=== PATIENT | female | born 1950 | race Caucasian/White ===

== ENCOUNTER 2019-07-16 15:00 | Inpatient (IN) ==
--- NOTE | 2019-07-16 15:55 | PROVIDER DOCUMENTATION ---
HPI-General Adult - General Stated Complaint: MY HEART RATE RUNNING 125 Time Seen by Provider: 07/16/19 15:25 Source: patient Allergies/Adverse Reactions: Patient Allergies Allergy/AdvReac Type Severity Reaction Status Date / Time morphine AdvReac Severe HYPOTENSION, Verified 03/01/15 14:36 SEVERE Home Medications: Home Medication List Medication Instructions Recorded Confirmed Last Taken Type Cetirizine HCl/Pseudoephedrine 1 each PO Q12H PRN PRN 09/04/13 03/09/15 03/08/15 08:00 History [Wal-Zyr D Tablet] Eszopiclone [Lunesta] 3 mg PO HS PRN PRN 09/04/13 03/09/15 03/07/15 History Levothyroxine [Synthroid] 100 microgm PO DAILY 09/04/13 03/09/15 03/08/15 08:00 History Potassium Chloride 2 tab PO DAILY 09/04/13 03/09/15 03/08/15 08:00 History Sertraline HCl 100 mg PO QHS 09/04/13 03/09/15 03/08/15 20:00 History - History of Present Illness -Gen Adult Nature of Presenting Problems: Patient with stage 4 cancer with active chemo comes in with having palpitations and some dizziness. She denies any pain or shortness of breath. She states she was recently at and was tachycardic and her O2 level was low. She declined admission at that time. Today she went in to have her EPO shot and some fluids and kept being tachycardic and dizzy so she came in to the ER. She did have an episode where she had syncope and fell and hit her head but that was before going to [facility] for evaluation and her CT was negative. Review of Systems - Adult - REVIEW OF SYSTEMS - ADULT Constitutional: reports: see HPI, álvaro. denies: chills, fever, night sweats, weight gain, weight loss Eyes: reports: no symptoms reported. denies: discharge, dry eyes, decreased vision, blurred vision, double vision, eye pain Ears, Nose, Mouth & Throat: reports: no symptoms reported. denies: ear discharge, hearing loss, tinnitus, epistaxis, loose teeth, mouth/dental pain, mouth swelling, hoarseness, throat pain, throat swelling Cardiovascular: reports: see HPI, irregular heart rate, palpitations. denies: chest pain, edema, heart murmur, orthopnea, poor circulation, PND, syncope Respiratory: reports: no symptoms reported. denies: chronic cough, cough, dyspnea on exertion, excessive sputum production, hemoptysis, pleurisy, shortness of breath, wheezing Gastrointestinal: reports: no symptoms reported. denies: abdominal pain, hematemesis, diarrhea, difficulty swallowing, frequent heartburn, poor appetite, rectal bleeding, vomiting Genitourinary: reports: no symptoms reported. denies: dysuria, discharge, frequency, flank pain, hesitency, incontinence, urinary retention, urgency Musculoskeletal: reports: no symptoms reported. denies: bone pain, back pain, frequent leg cramps, joint pain, joint swelling, muscle weakness Integumentary: reports: no symptoms reported. denies: hives, hair loss, itching, mole changes, rash, skin sores/ulcer, skin thickening Neurological: reports: no symptoms reported. denies: dizziness/vertigo, headache/migraines, loss of balance, numbness, seizure, slurred speech, syncope Psychiatric: reports: no symptoms reported. denies: anxiety, alcohol/drug dependence, depression, emotional problems, insomnia, panic attacks, suicidal thoughts Endocrine: reports: no symptoms reported. denies: excessive sweating, cold intolerance, heat intolerance, increased hunger, increased thirst, polyuria Hematologic/Lymphatic: reports: no symptoms reported. denies: blood clots, easy bruising, low blood count, prolonged bleeding, swollen lymph nodes, transfusions Allergic/Immunologic: reports: no symptoms reported. denies: allergic reactions, asthma, eczema, frequent infections, hay fever, hives, positive PPD, urticaria All Other Systems: Reviewed and Negative Past History - Adult - PAST MEDICAL HISTORY-ADULT Review of Records: reports: Old Records Reviewed, Nursing Assessment Review, Me dications Reviewed, Social history reviewed & non-contributory. Major Childhood Illnesses: reports: denies history Cardiovascular: reports: denies history Respiratory: reports: denies history Gastrointestinal: reports: denies history Obstetrical/Gynecological: reports: denies history Genitourinary: reports: denies history Musculoskeletal: reports: denies history Neurological: reports: denies history Endocrine/Immune: reports: denies history, cancer Other Conditions: reports: denies history - PRIOR SURGERIES/PROCEDURES Surgical/Procedure History: reports: reviewed, not pertinent - IMMUNIZATION STATUS Childhood Immunizations: See Nurse Assessment Flu Vaccine: See Nurse Assessment - FAMILY HISTORY Family History: reviewed, not pertinent - SOCIAL HISTORY Smoking: quit greater than 1 year Substance Use: none/never Living Situation: family Physical Exam-General - PHYSICAL EXAM-ADULT Initial Vital Signs Reviewed: Yes - CONSTITUTIONAL General Appearance: appears well, alert, no apparent distress, thin - EYES Eyes: PERRL/EOMI, pink conjunctivae - HEAD, EARS, NOSE, MOUTH & THROAT HENMT: normocephalic/atraumatic, other. negative: moist mucous membranes (dry mucous membranes) - NECK Neck: non-tender, full range of motion, supple - RESPIRATORY Respiratory: chest non-tender, lungs clear, normal breath sounds, no pleuratic chest pain, no respiratory distress, no accessory muscle use - CARDIOVASCULAR Cardiovascular: normal peripheral pulses, no edema, no gallop, no JVD, no murmur , tachycardia - GASTROINTESTINAL (ABDOMEN) Abdominal Exam: normal bowel sounds, non tender, soft - LYMPHATIC Lymphatic: no adenopathy - MUSCULOSKELETAL Back Exam: normal inspection, no CVA tenderness Extremity: normal range of motion, non-tender, normal gait - SKIN Integumentary: normal color, normal turgor, warm/dry - 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, grossly normal - PSYCHIATRIC Psych/Mental Status: normal mood/affect, normal thought content, normal thought process, oriented x 3 Progress - PLAN OF CARE/RESULTS Progress/Plan/Lab Results: Orders Category Date Time Status cxr [CHEST-PORTABLE] [RAD] Stat Exams 07/16/19 15:43 Ordered CBC WITH DIFF [HEME] Stat Lab 07/16/19 15:42 Uncollected CMP [COMPREHENSIVE METABOLIC PANEL] [CHEM] Stat Lab 07/16/19 15:42 Uncollected PROTIME WITH INR [COAG] Stat Lab 07/16/19 15:43 Uncollected PTT [COAG] Stat Lab 07/16/19 15:46 Uncollected EKG [EKG] Stat Ther 07/16/19 15:42 Ordered Result Diagrams: 07/16/19 16:50 07/16/19 16:50 - XRAY 1 XRAY Study: Chest Impression: Normal, See EMR Report (OMMENT: The inspiration is less optimal than on 12/17/2017. There is cardiomegaly and increased pulmonary vascularity. Considering degree of inspiration there has been no significant change since the previous study.) - CONSULTS/PCP/HOSPITALIST Notification #1 *Consult/PCP/Hospitalist*: Dr leslie Time Discussed: 18:08 Consult Disposition: Admit Departure - Departure Date of Disposition Decision: 07/16/19 Time of Disposition Decision: 18:05 DIAGNOSIS: Atrial fibrillation with RVR Disposition: ADMITTED INPATIENT 09 Certified Medical Emergency: Emergent Condition: Good Referrals and Follow-Ups: Moose Oh MD [Primary Care Provider] - - Critical Care Note This patient required my direct & personal management of CC.: No Attestation - Physician/ GLADYS Attestation Patient care was provided by Advanced Practice Provider:: Yes Advanced Practice Provider:: Armand Ambriz Advanced Practice Provider documentation review:: The Mid-level provider documentation, treatment plan and medical decision making was reviewed by the physician who agrees with all treatment and medical decision making by the MLP. The physician spent face to face time with patient:: No Advanced Practice Provider documentation review:: Supervising physician onsite and consulted in the evaluation and care of this patient. The physician did not have a face to face encounter with the patient.
[2019-07-16] MEDS ORDERED: NS 1,000 ML IV ONE (15:56)
--- NOTE | 2019-07-16 16:09 | EKG Report ---
Test Performed on : 07/16/2019 3:15:35 PM Test Reason : tachy Blood Pressure : / mmHG Vent. Rate : 095 BPM Atrial Rate : 095 BPM P-R Int : 180 ms QRS Dur : 100 ms QT Int : 392 ms P-R-T Axes : 057 034 020 degrees QTc Int : 492 ms Normal sinus rhythm. Cannot rule out Inferior infarct , age undetermined Abnormal ECG When compared with ECG of 29-NOV-2008 13:09, premature atrial complexes. are no longer present Minimal criteria for Inferior infarct are now present Nonspecific T wave abnormality has replaced inverted T waves in Inferior leads T wave inversion no longer evident in Anterolateral leads Unconfirmed Result
--- NOTE | 2019-07-16 16:15 | Diag Imaging Result Doc PS360 ---
EXAM: CHEST-PORTABLE 07/16/2019 HISTORY: ca with fatigue TECHNIQUE: AP portable upright at 1551 COMMENT: The inspiration is less optimal than on 12/17/2017. There is cardiomegaly and increased pulmonary vascularity. Considering degree of inspiration there has been no significant change since the previous study. IMPRESSION: Stable chest. Electronically signed by Jared Pinon 07/16/2019 4:13 PM
[2019-07-16 17:12] LABS: HEMATOCRIT 34.8 % (37.0-47.0); HEMOGLOBIN 10.6 g/dL (12.0-16.0); LYMPH# 0.79 X1000 (1.2-3.4); LYMPH% 4.6 % (20.5-51.1); MCH 29.5 PG (27-31); MCHC 30.5 g/dL (33-37); MCV 96.9 FL (81-99); MONO# 1.13 X1000 (0.11-0.59); MONO% 6.5 % (1.7-9.3); MPV 9.4 FL (7.4-10.4); PLT 118 X1000 (130-400); RBC 3.59 XMIL (4.2-5.4); RDW 17.8 % (11.5-14.5); WBC 17.29 X1000 (4.8-10.8)
[2019-07-16 17:15] LABS: INR 1.15; PROTIME 14.9 Seconds (11.0-16.0)
[2019-07-16 17:17] LABS: PTT 65.2 Seconds (22.3-41.8)
[2019-07-16 17:26] LABS: AGAP 11; ALB/GLOB RATIO 1.2; ALBUMIN 3.1 g/dL (3.5-5.0); ALKALINE PHOSPHATASE 318 U/L (32-104); BUN 13 mg/dL (8-22); CALCIUM 8.4 mg/dL (8.8-10.2); CHLORIDE 103 mmol/L (98-107); COSMO 282; CREATININE 0.3 mg/dL (0.5-0.9); ESTIMATED GFR > 60; GLUCOSE 80 mg/dL (70-104); GOT 34 U/L (10-30); GPT 18 U/L (10-36); POTASSIUM 3.6 mmol/L (3.5-5.1); SODIUM 142 mmol/L (136-145); TCO2 28 mmol/L (25-35); TOTAL BILIRUBIN 0.71 mg/dL (0.20-1.00); TOTAL PROTEIN 5.6 g/dL (6.3-8.3)
[2019-07-16 17:42] LABS: BANDS 11 % (0-1); LYMPHS 5 % (21-51); SEGS 84 % (42-75)
[2019-07-16 17:43] LABS: ANISOCYTOSIS 1+
[2019-07-16] MEDS ORDERED: LASIX IV ONE (17:55)
[2019-07-16] MEDS ORDERED: LOPRESSOR IV ONE (17:56)
[2019-07-16] MEDS ORDERED: LANOXIN IV ONE (17:57)
[2019-07-16] MEDS ORDERED: LOPRESSOR PO ONE (18:20)
--- NOTE | 2019-07-16 18:55 | ED EKG INTERP ---
This chart was entered by Montse Ceja Scribe, acting as scribe for Gabby Quiroz MD. EKG Interpretation - EKG Time of EKG reading by physician:: 18:33 EKG Read and Signed by:: Gabby Quiroz EKG Interpretation (*Must complete 3 of following elements*): Abnormal Rate: 128 Rhythm: Atrial fibrillation with rapid ventricular response ST Wave: non-specific ST changes (ST & T wave abnormality, consider lateral ischemia) Attestation - Physician/ GLADYS Attestation Patient care was provided by Advanced Practice Provider:: No The physician spent face to face time with patient:: Yes Advanced Practice Provider documentation review:: Supervising physician onsite and consulted in the evaluation and care of this patient. The physician did have a face to face encounter with the patient. This chart was documented by the indicated scribe, (Montse Ceja Scribe) and accurately reflects the services I performed and decisions made by me, Gabby Quiroz MD, as attested by the provider's signature.
--- NOTE | 2019-07-16 19:01 | EKG Report ---
Test Performed on : 07/16/2019 6:03:59 PM Test Reason : afib? Blood Pressure : / mmHG Vent. Rate : 128 BPM Atrial Rate : 125 BPM P-R Int : 000 ms QRS Dur : 096 ms QT Int : 290 ms P-R-T Axes : 000 051 -84 degrees QTc Int : 423 ms Atrial fibrillation. with rapid ventricular response. ST & T wave abnormality, consider lateral ischemia Abnormal ECG When compared with ECG of 16-JUL-2019 15:15, (Unconfirmed) Atrial fibrillation. has replaced Sinus rhythm. Minimal criteria for Inferior infarct are no longer present Non-specific change in ST segment in Inferior leads Nonspecific T wave abnormality now evident in Anterior leads Unconfirmed Result
[2019-07-16] MEDS ORDERED: ZYRTEC-D 12HR PO PRN (19:41)
[2019-07-16] MEDS ORDERED: TYLENOL PO PRN (19:41)
[2019-07-16] MEDS ORDERED: LOVENOX SUBQ SCH (19:41)
[2019-07-16] MEDS ORDERED: ZOFRAN IV PRN (19:41)
[2019-07-16] MEDS ORDERED: AMBIEN PO PRN (19:44)
[2019-07-16] MEDS: NS 1,000 ML IV SCH (20:43)
[2019-07-16] MEDS: LOPRESSOR PO SCH (20:43)
--- NOTE | 2019-07-16 20:48 | HISTORY AND PHYSICAL ---
CHIEF COMPLAINT: Rapid heart rate and near syncope. PRESENT ILLNESS: This is the first recent [facility] admission for this 68-year-old white female with stage IV metastatic breast carcinoma, who was in the emergency room in [place] following a syncopal episode after which she fell and hit her head. CT scan of her head was normal. She did not wish to stay in the hospital at that time and was discharged home. She had an episode today of rapid heartbeat and dizziness. She presented to the emergency room here she was found to have SVT and atrial fibrillation. EKG showed no acute ST-T changes. She was given digoxin and IV metoprolol with decrease in heart rate from 120s to 90s. Maximum heart rate during an episode of atrial fibrillation and SVT was 150. After her heart rate slowed, she is feeling better. She denies nausea. Discussion was made with the emergency room physician and decision made to put her in the hospital for observation. INITIAL LABORATORY: Hemoglobin 10.6, hematocrit 34.8, white blood count 17,300. Sodium 142, potassium was 3.6, BUN 13, creatinine 0.3, calcium 8.4, total bilirubin 0.7, AST 34, alkaline phosphatase 318, total protein 5.6, albumin 3.1. PAST MEDICAL HISTORY: First developed breast cancer 10 years ago, had a lumpectomy followed by chemotherapy and radiation. She thought the cancer was gone until 16 months ago when she had a fracture of her vertebra, T7. Biopsy was done at that time revealing metastatic disease. She is followed on a regular basis by Dr. Yoshi Ordaz in [place], oncologist. HOME MEDICATIONS: 1. Sertraline 100 mg at bedtime. 2. Acetaminophen 650 mg q.6 hours p.r.n. 3. Cetirizine/pseudoephedrine q.12 hours p.r.n. 4. Lunesta 3 mg at bedtime p.r.n. sleep. 5. Levothyroxine 100 mcg daily. 6. Potassium chloride ER 2 tablets daily. ALLERGIES: Morphine. REVIEW OF SYSTEMS: Followed by Oncology, Dr. Ordaz in [place], as above. She had her last chemo on Friday. FAMILY HISTORY: Unremarkable. SOCIAL HISTORY: and lives with her . Currently, her is in the emergency room at [place] with respiratory infection. Her son is present. PHYSICAL EXAMINATION: VITAL SIGNS: Temperature 98.4 degrees, heart rate 92, respirations 24, blood pressure 121/80 O2 saturation 96% on 2 liters nasal oxygen. She has not used oxygen at home. The first time her oxygen level was low was when she was in the emergency room recently at [facility]. PHARYNX: Benign with no erythema or exudate. NECK: Supple with no mass or lymphadenopathy. HEART: Irregular in rate and rhythm with no murmur, rub or gallop. LUNGS: Clear with no rales or rhonchi. ABDOMEN: Soft and thin with no mass or organomegaly. EXTREMITIES: No cyanosis, clubbing, or edema. RECTAL AND GENITALIA: Deferred. IMPRESSION: 1. Atrial fibrillation with rapid ventricular response. 2. Near-syncope with dizziness. 3. Hypoxia. 4. Stage IV metastatic breast carcinoma to the lungs and bones. 5. Protein and calorie malnutrition secondary to her cancer. 6. Hypothyroidism. PLAN: Admit for further evaluation and treatment. If she has a good night and is not short of breath tomorrow, she may be able to go home. She was given digoxin and metoprolol in the emergency room. cc: Lionel Mcgregor MD
[2019-07-16] MEDS ORDERED: ZOLOFT PO SCH (21:00)
[2019-07-17] MEDS: LOPRESSOR PO SCH (08:42)
[2019-07-17] MEDS ORDERED: KLOR-CON PO SCH (09:00)
[2019-07-17] MEDS ORDERED: SYNTHROID PO SCH (09:00)
[2019-07-17] MEDS ORDERED: PEPCID PO SCH (09:30)
[2019-07-17] MEDS ORDERED: LANOXIN PO SCH (09:45)
--- NOTE | 2019-07-17 09:56 | PROGRESS NOTE ---
DATE: 07/17/2019 OBJECTIVE: Vital signs stable with temperature 98.7 degrees, heart rate 86, sinus rhythm, respirations 17, blood pressure 121/70, O2 saturation on 2 liters nasal oxygen 98%. SUBJECTIVE: Patient rested fairly well last night. She ate a fairly good breakfast. She is complaining with mild heartburn at this time. Pepcid will be given. Chest is clear. PLAN: Ambulate and discontinue oxygen. If she is doing well this afternoon, discharge will be considered. cc: Lionel Mcgregor MD
[2019-07-17] MEDS: NS 1,000 ML IV SCH (15:15)
[2019-07-17 15:22] VITALS: BP 120/62
--- NOTE | 2019-07-17 18:12 | EKG Report ---
Test Performed on : 07/17/2019 06:33:52 AM Test Reason : rhythm change Blood Pressure : / mmHG Vent. Rate : 085 BPM Atrial Rate : 085 BPM P-R Int : 194 ms QRS Dur : 094 ms QT Int : 368 ms P-R-T Axes : 072 047 -71 degrees QTc Int : 437 ms Normal sinus rhythm. with sinus arrhythmia. Cannot rule out Anterior infarct , age undetermined Nonspecific ST and T wave abnormality Abnormal ECG When compared with ECG of 16-JUL-2019 18:03, (Unconfirmed) Sinus rhythm. has replaced Atrial fibrillation. Vent. rate has decreased BY 43 BPM Confirmed by Moi Carbajal MD ([id number]) on 07/18/2019 12:44:07 PM
--- NOTE | 2019-07-19 04:14 | DISCHARGE SUMMARY ---
ADMISSION DATE: 07/16/2019 DISCHARGE DATE: 07/17/2019 FINAL DIAGNOSES: 1. Atrial fibrillation and supraventricular tachycardia with rapid ventricular response. 2. Near-syncope. 3. Hypoxia. 4. Stage IV metastatic breast carcinoma. DISCHARGE MEDICATIONS: Usual medication at home plus digoxin 0.125 mg daily (30) and metoprolol 12.5 mg (60) 1 b.i.d. This is the first recent [facility] admission for this 68-year-old white female patient of Dr. Loy Oh who presented to the emergency room after a near syncopal episode and was found to have tachycardia with rhythm showing atrial fibrillation and SVT. She was given some metoprolol and digoxin in the emergency room and heart rate slowed from 150 to the 90s. She was admitted for further evaluation and treatment. There was persistent atrial fibrillation at the time she was transferred to the floor. INITIAL LABORATORY: Hemoglobin 10.6, hematocrit 34.8, white blood count 17,300 with 84% neutrophils. Basic metabolic profile was normal. Sugar was 80, calcium was 8.4. Liver functions revealed AST to be 34, alkaline phosphatase 318, total protein 5.6, albumin 3.1. TSH was 1.8. HOSPITAL COURSE: By this morning, she was in sinus rhythm and feeling much better. She has had no further syncope. Oxygen was discontinued this morning. O2 saturation on room air this afternoon is 93%. She is feeling well and is discharged home on the above medications to be seen by Dr. Oh in about a week for followup. She has an appointment with Dr. Ordaz tomorrow in [place]. cc: Yoshi Ordaz MD
== END 2019-07-17 17:33 | disposition home or self-care (01) | DRG 309 ==
LOC: ED 15:00 → 2N 18:39
PROVIDERS: ADMIT Family Medicine; ATTEND Family Medicine